=== PATIENT | female | born 1930 | race Caucasian/White ===

== ENCOUNTER 2019-04-04 05:14 | Inpatient (IN) ==
[2019-04-04 06:30] LABS: Basophils # (auto) 0.02 K/uL (0-0.2); Basophils % (auto) 0.2 %; Eosinophils # (auto) 0.18 K/uL (0-0.5); Eosinophils % (auto) 1.6 %; Hemoglobin 11.4 g/dL (12.0-16.0); Immature Granulocytes # (auto) 0.02 K/uL (0.00-0.02); Immature Granulocytes % (auto) 0.2 %; Lymphocytes # (auto) 1.12 K/uL (1.2-3.4); Lymphocytes % (auto) 9.7 %; Mean Corpuscular Hgb Conc 33.5 g/dL (32-36); Mean Corpuscular Volume 82.1 fL (80-100); Mean Platelet Volume 8.7 fL (7.4-10.4); Monocytes # (auto) 0.82 K/uL (0.11-0.59); Monocytes % (auto) 7.1 %; Neutrophils # (auto) 9.33 K/uL (1.4-6.5); Neutrophils % (auto) 81.2 %; Platelet Count 254 K/uL (130-400); RDW Coefficient of Variation 14.8 % (11.5-14.5); RDW Standard Deviation 44.5 fL (36.4-46.3); Red Blood Count 4.14 M/uL (4.2-5.4); White Blood Count 11.49 K/uL (4.8-10.8)
[2019-04-04] MEDS ORDERED: cefTRIAXone SODIUM 1,000 MG/50 ML BAG IV STA (06:33)
[2019-04-04 06:47] LABS: Albumin Level 2.3 gm/dl (3.4-5.0); BUN Creatinine Ratio 21.8 (10-20); Calcium 10.1 mg/dl (8.5-10.1); Creatinine Clr Calc Pharmacy 41.4 ml/min; Est GFR (African American) 66.2; Est GFR (Non-African American) 57.1; Potassium 3.8 mmol/L (3.5-5.1)
[2019-04-04 06:50] LABS: Albumin Globulin Ratio 0.5 (0.9-2); Bilirubin,Total 0.4 mg/dl (0.2-1); Globulin 4.8 gm/dl (2.5-4.0); Total Protein 7.1 gm/dl (6.4-8.2)
--- NOTE | 2019-04-04 06:53 | XRay Report ---
XR chest 2V routine CLINICAL HISTORY: 88 years-old Female presenting with Dyspnea. TECHNIQUE: PA and lateral views of the chest were obtained. COMPARISON: None. FINDINGS: Atherosclerosis of the aortic arch. Cardiac silhouette enlarged. Masslike 7.2 cm opacity in the right lower lobe. This may contain internal cavitary change. Normal lung volume. Diffuse coarsening of pako g markings with basilar predominant reticular opacities. Pleural thickening or trace pleural effusion suggested on the right. No pneumothorax. Degenerative changes of the thoracic spine. Osteopenia is l ikely present. Cholecystectomy clips noted. IMPRESSION: 1. Masslike opacity in the right lower lobe concerning for an underlying lesion. Contrast-enhanced c hest CT should be obtained. 2. Underlying chronic lung disease. A superimposed basilar predominant infiltrate is not excluded. The report will be called/faxed according to standard departmental protocol. Electronically signed by: Elliot Carpio M.D. 04/04/2019 6:52 AM
[2019-04-04] MEDS ORDERED: IOVERSOL 100ml IV PRN (07:04)
--- NOTE | 2019-04-04 07:22 | CT Scan Report ---
CHEST CT WITH CONTRAST CT DOSE: 170.26 mGy.cm HISTORY: Abnormal chest x-ray. eval right sided pneumonia TECHNIQUE: Multiaxial CT images of the chest were performed following the intravenous administration of contrast. A dose lowering technique was utilized adhering to the principles of ALARA. COMPARISON: Chest 04/04/2019. FINDINGS: Respiratory motion artifact. No pneumothorax. Mild emphysema. Small right pleural effusion. Right paratracheal, subcarinal, and right hilar lymphadenopathy. Dominant subcarinal lymph node valente ures 4.0 x 2.3 cm. Dominant right paratracheal lymph node is partially necrotic and measures 2.6 x 1. 9 cm. Dominant right hilar lymph node measures 2.1 cm. The hilar and subcarinal lymphadenopathy resul ts in slight mass effect along the bronchus intermedius. No evidence for an aortic dissection. The ma in pulmonary arteries are patent. No significant left hilar lymphadenopathy. Within the right lower l obe posteriorly there is a 6 cm round opacity demonstrating central hypodensity. This demonstrates a thick wall and therefore favors a necrotic mass. A 3 cm partially visualized hypodense lesion within the upper pole the right kidney. This is incompletely visualized but favors a cyst. The visualized li eliazar, spleen, and adrenal glands are unremarkable. Moderate hiatus hernia. There is diffuse coarse int erstitial thickening with mild honeycombing along the periphery of the lungs. This is consistent with pulmonary fibrosis. Interstitial densities at the lung bases also likely due to the fibrotic change. No suspicious lytic are blastic osseous lesions. IMPRESSION: 1. A 6 cm necrotic lesion within the right lower lobe. This is highly concerning for a primary bronch ogenic malignancy. 2. Extensive mediastinal and right hilar lymphadenopathy concerning for metastatic disease. 3. Small right pleural effusion. 4. Diffuse coarse interstitial thickening suggestive of fibrotic change. Electronically signed by: Julián Stiles M.D. 04/04/2019 7:21 AM
[2019-04-04] MEDS ORDERED: SODIUM CHLORIDE 0.9% 500 ML IV SCH (07:45)
[2019-04-04 07:53] LABS: Appearance Urine Clear (Clear); Bacteria Urine Automated 1+ (Negative); Bilirubin Urine Negative (Negative); Blood Urine Trace (Negative); Color Urine Yellow; Epithelial Cell Urine Auto 20-30 /lpf (0-5); Glucose Urine UA Negative (Negative); Ketones Urine Negative (Negative); Leukocyte Esterase Urine 1+ (Negative); Nitrite Urine Positive (Negative); Protein Urine Negative (Negative); RBC Urine Automated 0-4 /hpf (0-4); Specific Gravity Urine 1.018 (1.000-1.030); Urobilinogen Urine Negative (Negative); pH Urine 6.5 (4.5-7.5)
[2019-04-04 08:42] LABS: C Reactive Protein 7.68 mg/dl (0-0.29)
[2019-04-04] MEDS ORDERED: NON-FORMULARY MEDICATION (Multivit-Min-Fa-Lycopen-Lutein [Centrum Silver] 1 TAB) PO SCH (09:23)
[2019-04-04 09:57] LABS: INR 1.1 (0.9-1.1); Prothrombin Time 11.4 Seconds (9.0-12.0)
[2019-04-04] MEDS: ASPIRIN 81 MG ECTAB PO SCH (10:15)
[2019-04-04] MEDS: CEROVITE ADV FORMULA TAB PO SCH ×2 (10:15→21:04)
[2019-04-04] MEDS: CHOLECALCIFEROL 1,000 UNITS TAB PO SCH (10:15)
[2019-04-04] MEDS: LEVOTHYROXINE SODIUM 75 MCG TABLET PO SCH (10:16)
[2019-04-04] MEDS: AZITHROMYCIN 500 MG in DEXTROSE 5% 250 ML IV SCH (10:19)
--- NOTE | 2019-04-04 10:25 | History & Physical Report ---
Date of Service April 04, 2019 Assessment & Plan (1) Hypoxia: (2) Right lower lobe lung mass: -Admit to [facility] -Patient presenting from home with reports of generalized weakness and poor appetite for the past few days -In the ED, found to be mildly hypoxic on room air at 89%, this improved with oxygen 2 L via nasal cannula -CXR was suggesting a right lower lobe lung mass; CT chest was obtained showing 6 cm right lower lobe necrotic mass with mediastinal and right hilar lymphadenopathy suggestive of metastatic disease -will place on his ceftriaxone and a azithromycin for empiric coverage of any possible underlying infection -Patient is a former smoker (quit ~40 years ago) -Likely will need biopsy for definitive diagnosis -Consults placed to pulmonary and thoracic medicine (3) Possible urinary tract infection: -UA suggest possible UTI -Received IV ceftriaxone in the ED, will continue with -Follow urine culture (4) Hypothyroidism: -Continue levothyroxine (5) DVT prophylaxis: -SQ heparin History of Present Illness Chief Complaint: Generalized weakness Primary Care Provider: Clair Ochoa DO 88-year-old female who presents to the ED with generalized weakness. Patient reports she has been feeling well for the past 3 days. Patient lives at home alone in [place]. She reports that in addition to generalized weakness, she is also been having some upper/mid back pain. This is resolved with use of Tylenol. She has had a very poor appetite and nausea. She denies abdominal pain, vomiting, diarrhea. She reports she felt feverish however did not take her temperature. Patient reports she otherwise been feeling well recently. Weight has been stable. She denies chest pain or shortness of breath. No cough or sputum production. No lightheadedness, dizziness, kimberly phoresis, syncopal events. She denies any urinary symptoms. In the ED, patient was mildly hypoxic on room air at 89%. This improved with oxygen 2 L via nasal cannula. UA is suggestive of UTI. Chest x-ray was suggestive of right lower lobe mass. Follow-up CT was obtained that showed a 6 cm right lower lobe necrotic mass. Patient was given IVF and IV ceftriaxone. Allergies Allergy/AdvReac Type Severity Reaction Status Date / Time No Known Allergies Allergy Unverified 04/04/19 06:11 Home Medications Home Medications Medication Instructions Recorded Confirmed Type aspirin 81 mg PO DAILY 04/04/19 04/04/19 History cholecalciferol (vitamin D3) 1,000 unit PO DAILY 04/04/19 04/04/19 History [Vitamin D3] levothyroxine 75 mcg PO DAILY 04/04/19 04/04/19 History foxwyhdm-wvg-ZA-lycopen-lutein 1 tab PO DAILY 04/04/19 04/04/19 History [Centrum Silver] vit C,B-Vu-trfun-lutein-zeaxan 1 tab PO BID 04/04/19 04/04/19 History [PreserVision AREDS-2] Past Med/Surg History Medical History History of hysterectomy (Chronic) Macular degeneration (Chronic) Osteoarthritis (Chronic) Dyslipidemia (Chronic) Hypothyroidism (Chronic) Surgical History Hx of cholecystectomy (Chronic) History of cataract surgery (Chronic) H/O oophorectomy (Chronic) Family History Mother Liver cancer Brother Stomach cancer Social History Preferred Language: Yoruba Communication Ability: Effective Director Motion Picture Required: No Beliefs That Will Affect Care: None Current Living Situation: Alone Other Information That Helps Us Care for You: No Feels Safe at Home: Yes Safety Concerns: Feels Safe At This Time Smoking Status: Former smoker Do You Dip or Chew Tobacco: No ; Second Hand Exposure: No ; Tobacco Cessation Education Requested by Patient: No Hx Alcohol Use: Yes Alcohol type: wine Alcohol Intake Frequency: Rarely Hx Substance Use: No Review of Systems Review of Systems: ROS per HPI, all other systems reviewed and negative Physical Exam Constitutional: WD/WN, vitals as above Eyes: PERRL, conjunctivae normal, anicteric sclerae ENMT: external ear and nose normal, oropharynx normal Respiratory: normal respiratory effort; no respiratory distress Mildly coarse breath sounds bilateral bases Cardiovascular: Rate/Rhythm: + irregularly irregular (Occasional PVCs noted) Vessels: normal peripheral pulses Extremities: no edema Gastrointestinal (Abdomen): normal bowel sounds, soft, nontender, no hepatosplenomegaly Musculoskeletal: no cyanosis or clubbing, extremities motor strength 5/5 Skin: no rashes, warm and dry Neurologic: PERRL, EOMI, accommodation nl, no face palsy, no dysarthria Psychiatric: A+Ox3, euthymic affect Results & Data Vital Signs (Past 12 Hours) Vital Signs Temp Pulse Pulse Resp BP BP Pulse Ox 04/04/19 08:57 90 24 162/86 H 96 04/04/19 07:41 96 H 24 162/71 H 96 04/04/19 06:42 93 04/04/19 06:34 89 L 04/04/19 06:29 88 18 122/74 91 04/04/19 06:28 91 04/04/19 05:25 37.1 C 98 H 18 153/90 H 91 Laboratory Results Short CBC 04/04/19 Range/Units 06:24 WBC 11.49 H (4.8-10.8) K/uL Hgb 11.4 L (12.0-16.0) g/dL Hct 34.0 L (37-47) % Plt Count 254 (130-400) K/uL BMP 04/04/19 06:24 Sodium 138 Potassium 3.8 Chloride 106 Carbon Dioxide 25 BUN 20 H Creatinine 0.91 Glucose 104 H Calcium 10.1 Liver Function 04/04/19 Range/Units 06:24 Total Bilirubin 0.4 (0.2-1) mg/dl AST 13 L (15-37) U/L ALT 15 (12-78) U/L Alkaline Phosphatase 86 (45-117) U/L Albumin 2.3 L (3.4-5.0) gm/dl Urine 04/04/19 Range/Units 07:45 Urine Color Yellow Urine Appearance Clear (Clear) Urine pH 6.5 (4.5-7.5) Ur Specific [place] 1.018 (1.000-1.030) Urine Protein Negative (Negative) Urine Glucose (UA) Negative (Negative) Diagnostic Findings CXR IMPRESSION: 1. Masslike opacity in the right lower lobe concerning for an underlying lesion. Contrast-enhanced chest CT should be obtained. 2. Underlying chronic lung disease. A superimposed basilar predominant infiltrate is not excluded. CHEST CT IMPRESSION: 1. A 6 cm necrotic lesion within the right lower lobe. This is highly concerning for a primary bronchogenic malignancy. 2. Extensive mediastinal and right hilar lymphadenopathy concerning for metastatic disease. 3. Small right pleural effusion. 4. Diffuse coarse interstitial thickening suggestive of fibrotic change. Code Status & VTE Plan Code Status Patient is a full code as per my discussion with her. VTE Prophylaxis Plan VTE Prophylaxis will be ordered: Yes Supervising Physician Co-Signing Physician Notes I have seen and examined the patient with nurse practitioner and agree with the assessment and plan as above and would like to comment that this is an 88 year old Female with complaints of a persistent nonproductive cough beginning [address] Chest findings that is highly concerning for lung cancer CT chest 1. A 6 cm necrotic lesion within the right lower lobe. This is highly concerning for a primary bronchogenic malignancy. 2. Extensive mediastinal and right hilar lymphadenopathy concerning for metastatic disease. 3. Small right pleural effusion. 4. Diffuse coarse interstitial thickening suggestive of fibrotic change. Patient has CT-guided fine-needle aspiration of the right lower lobe lung mass on 04/04/19 and sent to pathology CT surgery who had been consulted to help with making the pulmonary diagnosis also recommended Brain imaging to rule out brain cancer. Brain MRI with and without contrast: No acute intracranial findings.No evidence of intracranial metastasis No evidence of acute or subacute infarction will continue IV fluids given that patient received IV contrast for the brain MRI scan and recheck renal function on 04/05/19 have added azithromycin with ceftriaxone to give additional pulmonary coverage in case there is a concurrent pneumonia continue ceftriaxone empirically for urinary tract infection will keep inpatient for now and try to titrate down supplementary oxygen for hypoxia if possible Physical Exam General: no acute distress, ambulatory, verbal, cooperative Lungs: normal respiratory rate, on nasal cannula oxygen heart: regular rate and rhythm Neuro: no focal neurological deficits abdomen: soft, nontender, positive bowel sounds
[2019-04-04] MEDS: SODIUM CHLORIDE 0.9% 1000ML 1,000 ML IV SCH (10:43)
--- NOTE | 2019-04-04 14:13 | Emergency Department Note ---
Entered by Ernesto Groves acting as a scribe for History of Present Illness General Chief complaint: Illness Stated complaint: ILLNESS Time Seen by Provider: 04/04/19 05:18 Source: patient History of Present Illness Onset (ago): day(s) 3 Location: chest Pain Consistency: + other (persistent) Maximum Pain Intensity: 5 Quality: + other (nonproductive cough) Associated symptoms: + other (Positive for back pain, leg pain, and nausea. Negative for abdominal pain, CP, and fever.) The patient is an 88 year old female who presents to the emergency department w ith complaints of a persistent nonproductive cough beginning 3 days ago. The patient states that she began to feel ill 3 days ago. She notes that she developed a nonproductive cough, a burning pain in her back, and pain in the back of her legs at that time. She reports that she was nauseous en route to the emergency department, but she states that her nausea has resolved. She denies any abdominal pain, CP, and fever. Home Medications Home Medications Medication Instructions Recorded Confirmed Type aspirin 81 mg PO DAILY 04/04/19 04/04/19 History cholecalciferol (vitamin D3) 1,000 unit PO DAILY 04/04/19 04/04/19 History [Vitamin D3] levothyroxine 75 mcg PO DAILY 04/04/19 04/04/19 History wwflgbpc-jli-AO-lycopen-lutein 1 tab PO DAILY 04/04/19 04/04/19 History [Centrum Silver] vit C,G-Ry-tupax-lutein-zeaxan 1 tab PO BID 04/04/19 04/04/19 History [PreserVision AREDS-2] Allergies Allergy/AdvReac Type Severity Reaction Status Date / Time No Known Allergies Allergy Unverified 04/04/19 06:11 Past Med/Surg History Medical History History of hysterectomy (Chronic) Macular degeneration (Chronic) Osteoarthritis (Chronic) Dyslipidemia (Chronic) Hypothyroidism (Chronic) Surgical History Hx of cholecystectomy (Chronic) History of cataract surgery (Chronic) H/O oophorectomy (Chronic) Family History Mother Liver cancer Brother Stomach cancer Social History Preferred Language: [place] Communication Ability: Effective 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 and A total of 10 systems reviewed and were otherwise negative Physical Exam Vital Signs Vital Signs - 24 hr 04/04/19 05:25 04/04/19 06:28 04/04/19 06:29 Temperature 37.1 C Temperature Source Oral Sepsis Recent Fever Within 48 Hours No Sepsis New/Unexplained Change in Mental Status No Sepsis Action Taken by Nursing No Action Required Pulse Rate 98 H Pulse Rate [Finger] 88 Respiratory Rate 18 18 Blood Pressure 153/90 H Blood Pressure [Right Arm] 122/74 Blood Pressure Mean 111 Blood Pressure Mean [Right Arm] 90 Pulse Oximetry 91 91 91 Oxygen Delivery Method Room Air Room Air Room Air Oxygen Flow Rate 04/04/19 06:34 04/04/19 06:42 04/04/19 07:41 Temperature Temperature Source Sepsis Recent Fever Within 48 Hours Sepsis New/Unexplained Change in Mental Status Sepsis Action Taken by Nursing Pulse Rate Pulse Rate [Finger] 96 H Respiratory Rate 24 Blood Pressure Blood Pressure [Right Arm] 162/71 H Blood Pressure Mean Blood Pressure Mean [Right Arm] 101 Pulse Oximetry 89 L 93 96 Oxygen Delivery Method Room Air Nasal Cannula Nasal Cannula Oxygen Flow Rate 2 2 HEENT: Head - normocephalic and atraumatic Pupils are equal, round, and reactive to light. Extraocular eye muscles are intact, and sclera are anicteric. Nose - moist nasal mucosa without discharge. Mouth - moist buccal mucosa. Oropharynx is nonerythematous and there is no tonsillar exudate or edema noted. Neck: Supple; no thyromegaly or cervical lymphadenopathy Heart: Regular rate and rhythm. There is a normal S1 and S2 with no murmurs, clicks, or gallops appreciated. Lungs: Clear to auscultation bilaterally with no wheezes, rales, or rhonchi. Abdomen: Soft, completely nontender, nondistended, with good bowel sounds. There are no palpable pulsatile masses or hepatosplenomegaly. There is no guarding, rigidity, or rebound noted. Extremities: No evidence of cyanosis, clubbing, or edema. There are easily palpable peripheral pulses. Skin: warm and dry with good turgor and no rashes. Course 0529: The patient was evaluated in room A9. A complete history and physical examination were performed. Nursing notes and previous electronic medical records were reviewed. IV lock was established and labs were drawn as above. The patient was observed on the threat monitoring analyst and pulse oximeter. O2 saturations dropped into the 80s and she was placed on supplemental oxygen. She had a chest x-ray as described below 0638: Ceftriaxone Sodium 1000mg in 50 mls @ 100 mls/hr IV 0639: I reevaluated and updated the patient. She is feeling better. She is getting antibiotics and will soon go for CT. 0734: Upon reevaluation, the patient is stable. I discussed the findings and the treatment plan with the patient. She expresses agreement and understanding. I spoke with Dr. Shelley of the [facility]. She will be evaluated for further management. Consultations Consultation #1: I [facility] the [facility] He will evaluate the patient for further management. Time: 07:34 Administered Medications Aspirin (Ecotrin Ectab) 81 mg PO DAILY MACO Stop: 05/04/19 09:22 Last Admin: 04/04/19 10:15 Dose: 81 mg Documented by: [id number] Azithromycin 500 mg/ Dextrose 255 mls @ 125 mls/hr IV Q24H MACO Stop: 04/11/19 09:59 Last Infusion: 04/04/19 10:30 Dose: 0 mls/hr Documented by: [id number] Admin: 04/04/19 10:19 Dose: 125 mls/hr Documented by: [id number] Sodium Chloride (Nss 1000ml) 1,000 mls @ 80 mls/hr IV .[id number] MACO Stop: 05/04/19 10:29 Last Infusion: 04/04/19 13:05 Dose: 0 mls/hr Documented by: [id number] Admin: 04/04/19 10:43 Dose: 80 mls/hr Documented by: [id number] Levothyroxine Sodium (Synthroid) 75 mcg PO DAILYBB MACO Stop: 05/04/19 09:44 Last Admin: 04/04/19 10:16 Dose: 75 mcg Documented by: [id number] Multivitamins/Minerals (Multivitamin W/ Minerals Tab) 1 tab PO BID MACO Stop: 05/04/19 09:22 Last Admin: 04/04/19 10:15 Dose: 1 tab Documented by: [id number] Vitamin D (Vitamin D3) 1,000 units PO DAILY MACO Stop: 05/04/19 09:22 Last Admin: 04/04/19 10:15 Dose: 1,000 units Documented by: [id number] Discontinued Medications Ceftriaxone Sodium (Rocephin) 1,000 mg in 50 mls @ 100 mls/hr IV NOW STA Stop: 04/04/19 07:02 Last Infusion: 04/04/19 07:16 Dose: 0 mls/hr Documented by: [id number] Admin: 04/04/19 06:38 Dose: 100 mls/hr Documented by: [id number] Sodium Chloride (Nss) 500 mls @ 125 mls/hr IV .Q4H MACO Stop: 05/04/19 07:44 Last Admin: 04/04/19 07:41 Dose: 125 mls/hr Documented by: [id number] Ioversol (Optiray 320 100ml) 95 ml IV ONCE PRN PRN Reason: Interaction Checking Stop: 04/08/19 07:03 Last Admin: 04/04/19 07:05 Dose: 95 ml Documented by: [id number] Medical Decision Making Differential Diagnosis Differential diagnoses include: pneumonia, electrolyte abnormalities, dehydration, and bronchitis. Medical Records Attestation: I reviewed the patient's medical records. Home Medications Current Medication List: was personally reviewed by me Laboratory Data Attestation: I reviewed the patient's lab results. Result diagrams: 04/04/19 06:24 04/04/19 06:24 Lab Results 04/04/19 04/04/19 04/04/19 Range/Units 06:24 06:24 06:24 WBC 11.49 H (4.8-10.8) K/uL RBC 4.14 L (4.2-5.4) M/uL Hgb 11.4 L (12.0-16.0) g/dL Hct 34.0 L (37-47) % MCV 82.1 (80-100) fL MCH 27.5 (25-34) pg MCHC 33.5 (32-36) g/dL RDW Std Deviation 44.5 (36.4-46.3) fL RDW Coeff of Mickey 14.8 H (11.5-14.5) % Plt Count 254 (130-400) K/uL MPV 8.7 (7.4-10.4) fL Immature Gran % (Auto) 0.2 % Neut % (Auto) 81.2 % Lymph % (Auto) 9.7 % [place] % (Auto) 7.1 % Eos % (Auto) 1.6 % Baso % (Auto) 0.2 % Immature Gran # (Auto) 0.02 (0.00-0.02) K/uL Neut # (Auto) 9.33 H (1.4-6.5) K/uL Lymph # (Auto) 1.12 L (1.2-3.4) K/uL [place] # (Auto) 0.82 H (0.11-0.59) K/uL Eos # (Auto) 0.18 (0-0.5) K/uL Baso # (Auto) 0.02 (0-0.2) K/uL ESR > 90 H (0-21) mm/hr Sodium 138 (136-145) mmol/L Potassium 3.8 (3.5-5.1) mmol/L Chloride 106 (98-107) mmol/L Carbon Dioxide 25 (21-32) mmol/L Anion Gap 7.0 (3-11) BUN 20 H (7-18) mg/dl Creatinine 0.91 (0.6-1.2) mg/dl Est Cr Clr Drug Dosing 41.4 ml/min Est GFR ( Amer) 66.2 Est GFR (Non-Af Amer) 57.1 BUN/Creatinine Ratio 21.8 H (10-20) Glucose 104 H (70-99) mg/dl Lactate (0.4-2.0) mmol/L Calcium 10.1 (8.5-10.1) mg/dl Total Bilirubin 0.4 (0.2-1) mg/dl AST 13 L (15-37) U/L ALT 15 (12-78) U/L Alkaline Phosphatase 86 (45-117) U/L C-Reactive Protein (0-0.29) mg/dl Total Protein 7.1 (6.4-8.2) gm/dl Albumin 2.3 L (3.4-5.0) gm/dl Globulin 4.8 H (2.5-4.0) gm/dl Albumin/Globulin Ratio 0.5 L (0.9-2) Procalcitonin (0-0.5) ng/ml TSH (0.300-4.500) uIu/ml Urine Color Urine Appearance (Clear) Urine pH (4.5-7.5) Ur Specific [place] (1.000-1.030) Urine Protein (Negative) Urine Glucose (UA) (Negative) Urine Ketones (Negative) Urine Blood (Negative) Urine Nitrite (Negative) Urine Bilirubin (Negative) Urine Urobilinogen (Negative) Ur Leukocyte Esterase (Negative) Urine WBC (Auto) (0-5) /hpf Urine RBC (Auto) (0-4) /hpf U Hyaline Cast (Auto) (0-5) /lpf U Epithel Cells (Auto) (0-5) /lpf Urine Bacteria (Auto) (Negative) Blood Type Antibody Screen 04/04/19 04/04/19 04/04/19 Range/Units 06:24 07:45 08:22 WBC (4.8-10.8) K/uL RBC (4.2-5.4) M/uL Hgb (12.0-16.0) g/dL Hct (37-47) % MCV (80-100) fL MCH (25-34) pg MCHC (32-36) g/dL RDW Std Deviation (36.4-46.3) fL RDW Coeff of Mickey (11.5-14.5) % Plt Count (130-400) K/uL MPV (7.4-10.4) fL Immature Gran % (Auto) % Neut % (Auto) % Lymph % (Auto) % [place] % (Auto) % Eos % (Auto) % Baso % (Auto) % Immature Gran # (Auto) (0.00-0.02) K/uL Neut # (Auto) (1.4-6.5) K/uL Lymph # (Auto) (1.2-3.4) K/uL [place] # (Auto) (0.11-0.59) K/uL Eos # (Auto) (0-0.5) K/uL Baso # (Auto) (0-0.2) K/uL ESR (0-21) mm/hr Sodium (136-145) mmol/L Potassium (3.5-5.1) mmol/L Chloride (98-107) mmol/L Carbon Dioxide (21-32) mmol/L Anion Gap (3-11) BUN (7-18) mg/dl Creatinine (0.6-1.2) mg/dl Est Cr Clr Drug Dosing ml/min Est GFR ( Amer) Est GFR (Non-Af Amer) BUN/Creatinine Ratio (10-20) Glucose (70-99) mg/dl Lactate (0.4-2.0) mmol/L Calcium (8.5-10.1) mg/dl Total Bilirubin (0.2-1) mg/dl AST (15-37) U/L ALT (12-78) U/L Alkaline Phosphatase (45-117) U/L C-Reactive Protein 7.68 H (0-0.29) mg/dl Total Protein (6.4-8.2) gm/dl Albumin (3.4-5.0) gm/dl Globulin (2.5-4.0) gm/dl Albumin/Globulin Ratio (0.9-2) Procalcitonin 0.05 (0-0.5) ng/ml TSH 0.874 (0.300-4.500) uIu/ml Urine Color Yellow Urine Appearance Clear (Clear) Urine pH 6.5 (4.5-7.5) Ur Specific [place] 1.018 (1.000-1.030) Urine Protein Negative (Negative) Urine Glucose (UA) Negative (Negative) Urine Ketones Negative (Negative) Urine Blood Trace H (Negative) Urine Nitrite Positive A (Negative) Urine Bilirubin Negative (Negative) Urine Urobilinogen Negative (Negative) Ur Leukocyte Esterase 1+ H (Negative) Urine WBC (Auto) 10-30 H (0-5) /hpf Urine RBC (Auto) 0-4 (0-4) /hpf U Hyaline Cast (Auto) 1-5 (0-5) /lpf U Epithel Cells (Auto) 20-30 H (0-5) /lpf Urine Bacteria (Auto) 1+ H (Negative) Blood Type Antibody Screen 04/04/19 04/04/19 Range/Units 08:22 08:22 WBC (4.8-10.8) K/uL RBC (4.2-5.4) M/uL Hgb (12.0-16.0) g/dL Hct (37-47) % MCV (80-100) fL MCH (25-34) pg MCHC (32-36) g/dL RDW Std Deviation (36.4-46.3) fL RDW Coeff of Mickey (11.5-14.5) % Plt Count (130-400) K/uL MPV (7.4-10.4) fL Immature Gran % (Auto) % Neut % (Auto) % Lymph % (Auto) % [place] % (Auto) % Eos % (Auto) % Baso % (Auto) % Immature Gran # (Auto) (0.00-0.02) K/uL Neut # (Auto) (1.4-6.5) K/uL Lymph # (Auto) (1.2-3.4) K/uL [place] # (Auto) (0.11-0.59) K/uL Eos # (Auto) (0-0.5) K/uL Baso # (Auto) (0-0.2) K/uL ESR (0-21) mm/hr Sodium (136-145) mmol/L Potassium (3.5-5.1) mmol/L Chloride (98-107) mmol/L Carbon Dioxide (21-32) mmol/L Anion Gap (3-11) BUN (7-18) mg/dl Creatinine (0.6-1.2) mg/dl Est Cr Clr Drug Dosing ml/min Est GFR ( Amer) Est GFR (Non-Af Amer) BUN/Creatinine Ratio (10-20) Glucose (70-99) mg/dl Lactate 1.0 (0.4-2.0) mmol/L Calcium (8.5-10.1) mg/dl Total Bilirubin (0.2-1) mg/dl AST (15-37) U/L ALT (12-78) U/L Alkaline Phosphatase (45-117) U/L C-Reactive Protein (0-0.29) mg/dl Total Protein (6.4-8.2) gm/dl Albumin (3.4-5.0) gm/dl Globulin (2.5-4.0) gm/dl Albumin/Globulin Ratio (0.9-2) Procalcitonin (0-0.5) ng/ml TSH (0.300-4.500) uIu/ml Urine Color Urine Appearance (Clear) Urine pH (4.5-7.5) Ur Specific [place] (1.000-1.030) Urine Protein (Negative) Urine Glucose (UA) (Negative) Urine Ketones (Negative) Urine Blood (Negative) Urine Nitrite (Negative) Urine Bilirubin (Negative) Urine Urobilinogen (Negative) Ur Leukocyte Esterase (Negative) Urine WBC (Auto) (0-5) /hpf Urine RBC (Auto) (0-4) /hpf U Hyaline Cast (Auto) (0-5) /lpf U Epithel Cells (Auto) (0-5) /lpf Urine Bacteria (Auto) (Negative) Blood Type O Negative Antibody Screen NEGATIVE Imaging Data Attestation: I personally reviewed and interpreted this imaging study as follows: My Impression: CHEST X-RAY: Pneumonia in right lower lung. Radiologist's Impression: Radiology results as stated below per my review and the radiologist's interpretation: CHEST CT WITH CONTRAST FINDINGS: Respiratory motion artifact. No pneumothorax. Mild emphysema. Small right pleural effusion. Right paratracheal, subcarinal, and right hilar lymphadenopathy. Dominant subcarinal lymph node measures 4.0 x 2.3 cm. Dominant right paratracheal lymph node is partially necrotic and measures 2.6 x 1.9 cm. Dominant right hilar lymph node measures 2.1 cm. The hilar and subcarinal ly mphadenopathy results in slight mass effect along the bronchus intermedius. No evidence for an aortic dissection. The main pulmonary arteries are patent. No significant left hilar lymphadenopathy. Within the right lower lobe posteriorly there is a 6 cm round opacity demonstrating central hypodensity. This demonstrates a thick wall and therefore favors a necrotic mass. A 3 cm partially visualized hypodense lesion within the upper pole the right kidney. This is incompletely visualized but favors a cyst. The visualized liver, spleen, and adrenal glands are unremarkable. Moderate hiatus hernia. There is diffuse coarse interstitial thickening with mild honeycombing along the periphery of the lungs. This is consistent with pulmonary fibrosis. Interstitial densities at the lung bases also likely due to the fibrotic change. No suspicious lytic are blastic osseous lesions. IMPRESSION: 1. A 6 cm necrotic lesion within the right lower lobe. This is highly concerning for a primary bronchogenic malignancy. 2. Extensive mediastinal and right hilar lymphadenopathy concerning for metastatic disease. 3. Small right pleural effusion. 4. Diffuse coarse interstitial thickening suggestive of fibrotic change. Electronically signed by: Julián Stiles M.D. 04/04/2019 7:21 AM ECG Data Attestation: I personally reviewed and interpreted this ECG as follows: Indication: back/shoulder pain Rate (beats per minute): 93 Rhythm: normal sinus Findings: no PAC, no PVC, no ST depression and no ST elevation Blood Pressure Blood Pressure Findings: Normal blood pressure Blood Pressure Disposition: did not require urgent referral MDM Narrative The patient is an 88 year old female who presents to the emergency department with complaints of a persistent nonproductive cough beginning 3 days ago. The patient has findings in the right lower lobe of her lung concerning for a mass versus pneumonia. She was treated with IV antibiotics and went for CT scan of the chest which unfortunately showed a necrotic mass thought to be consistent with bronchogenic carcinoma. The patient does have a history of tobacco abuse. She states that she smoked from the age of 16 to the age of 47. The patient did have episodes of hypoxia while here in the emergency department was placed on supplemental oxygen. I discussed the case with the hospitalist and they will evaluate for further management. Impression & Plan Mass of right lung, Hypoxia Critical Care Time Critical Care Time: Yes Total Critical Care Time: 45 I have personally spent 45 minutes of critical care time in the direct manage ment of this patient. This includes bedside care, interpretation of diagnostic studies, and testing, discussion with consultants, patient, and family members, and other required patient management activities. This 45 minutes is in excess of all separately billable procedures. Discharge Plan Visit Data *Final* Discharge Date/Time: 04/04/19 08:57 Chief Complaint: Illness Stated Complaint: ILLNESS ED Provider: Kylee Cyr Discharge Problem: Mass of right lung, Hypoxia Patient Disposition: Admitted As Inpatient Discharge Instructions Interventions: ED Discharge Assessment Last Done: 04/04/19 08:57 The scribe's documentation has been prepared under my direction and personally reviewed by me in its entirety. I confirm that the note above accurately reflects all work, treatment, procedures, and medical decision making performed by me.
--- NOTE | 2019-04-04 14:19 | CT Scan Report ---
CT guided FNA 1st lesion CLINICAL HISTORY: 88 years-old Female presenting with FNA. TECHNIQUE: Multidetector CT-guided fine-needle aspiration of the chest was performed without the use of intravenous contrast. IV contrast: None. CT fluoroscopy was utilized. One or more dose lowering te chniques were used consistent with the principles of ALARA (as low as reasonably achievable), includi ng automatic exposure control, mA or kV adjustment to individual patient size, and/or use of iterativ e reconstruction. COMPARISON: CT chest performed earlier the same day. CT DOSE (mGy.cm): The estimated cumulative dose is 675.38 mGycm. FINDINGS: Insurance Adjustor topogram: Unremarkable. The risks, benefits, and alternatives of the procedure were discussed with the patient. Written [facility] consent was obtained. A timeout was performed to confirm patient identity. The patient was placed right posterior oblique on the CT table, and the region of interest was scanne d for initial localization. The superficial margin of the right lower lobe mass was located 3.3 cm fr om the skin surface, and a right posterior oblique approach was chosen to target the mass. The right posterior chest wall was prepped and draped in the usual sterile fashion. 1% lidocaine was administered to the skin and deeper soft tissue. Using 22-gauge Seldinger needles and utilizing CT fluoroscopy, 2 passes were performed. Specimens wer e reviewed at the time of biopsy by the pathologist. These were deemed adequate for diagnosis. A postprocedure scan demonstrated trace foci of pneumothorax within the small right pleural effusion overlying the 5.7 cm right lower lobe mass. Background emphysema evident. The patient tolerated the procedure well without immediate complication. IMPRESSION: CT-guided fine-needle aspiration of the right lower lobe lung mass. Electronically signed by: Elliot Carpio M.D. 04/04/2019 2:18 PM
--- NOTE | 2019-04-04 14:50 | Consultation Report ---
DATE OF CONSULTATION: 04/04/2019 REASON FOR CONSULTATION: Right lower lobe mass and mediastinal adenopathy. HISTORY OF PRESENT ILLNESS: The patient is a remarkably healthy 88-year-old female who presented with confusion and hypoxia, was found to have a large mass in her right lower lobe with marked mediastinal adenopathy. She has also been confused, but has a urinary tract infection and has done this in the past. I had a long talk with the patient and 2 of her daughters. The patient has 5 children. The patient has a large right lower lobe mass, which is abutting her chest wall. She also has marked mediastinal adenopathy and a hiatal hernia. Different ways to approach this; however, I discussed this case with Dr. Julián Stiles from Radiology and they will perform a biopsy of this mass. PAST MEDICAL HISTORY: 1. Macular degeneration. 2. Dyslipidemia. 3. Hypothyroidism. 4. Osteoarthritis. 5. Urinary tract infection. 6. 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 PAST SURGICAL HISTORY: 1. 6, para 5, abortus 1. 2. Status post oophorectomy. 3. Cataract surgery. 4. Hysterectomy. 5. Cholecystectomy. MEDICATIONS: 1. Aspirin. 2. Synthroid. ALLERGIES: No known drug allergies. SOCIAL HISTORY: The patient is originally from [place]. She still lives in [place]. She had a history of cigarette smoking, but quit 40 years ago. She has a very supportive family. FAMILY MEDICAL HISTORY: Interestingly enough, her mother from apparent liver cancer and she had a brother who from gastric cancer. She had 1 child who was stillborn. REVIEW OF SYSTEMS: The patient states her weight has been relatively stable. She did feel feverish. She has signs and symptoms consistent with urinary tract infection. She is a bit hypoxic. She had generalized weakness and is having some back pain. She is independent of activities of daily living. She had no wound breakdown. She denies any visual or auditory symptoms. PHYSICAL EXAMINATION: GENERAL: This is a 5 feet 2 inch, 154-pound female who is awake, alert and oriented. HEENT: Extraocular movements are intact. She is hard of hearing. She has denture plates. NECK: Supple. She has no supraclavicular or cervical lymphadenopathy. LUNGS: Upon auscultation of her lungs, she actually sounds pretty good. She has a few rhonchi, a little worse on the right than left, but has no real decrease in breath sounds. HEART: She has a regular rate and rhythm with some occasional PACs or PVCs noted. ABDOMEN: Nice and soft. She has good bowel sounds and no evidence of hepatosplenomegaly. SKIN: She has no wound breakdown. EXTREMITIES: She has some mild hemosiderin deposition in both lower extremities. Has peripheral pulses, which are easily palpable. She has no joint effusions. NEUROLOGIC: Intact except for hearing. She apparently is better since she got to the hospital from a confusion standpoint. 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 I discussed this case with the family in detail. I also discussed this case with Dr. Rob and Dr. Stiles. We will see about getting this done. They will set up a needle biopsy of this mass. In the meantime, she also needs an MRI of her brain. I have discussed this in detail with the patient's family and they understand.
[2019-04-04] MEDS ORDERED: GADOBUTROL 65ML VIAL IV PRN (15:09)
--- NOTE | 2019-04-04 15:20 | CT Scan Report ---
CT guided FNA 1st lesion CLINICAL HISTORY: 88 years-old Female presenting with FNA. TECHNIQUE: Multidetector CT-guided fine-needle aspiration of the chest was performed without the use of intravenous contrast. IV contrast: None. CT fluoroscopy was utilized. One or more dose lowering te chniques were used consistent with the principles of ALARA (as low as reasonably achievable), includi ng automatic exposure control, mA or kV adjustment to individual patient size, and/or use of iterativ e reconstruction. COMPARISON: CT chest performed earlier the same day. CT DOSE (mGy.cm): The estimated cumulative dose is 675.38 mGycm. FINDINGS: Reconditioner topogram: Unremarkable. The risks, benefits, and alternatives of the procedure were discussed with the patient. Written [facility] consent was obtained. A timeout was performed to confirm patient identity. The patient was placed right posterior oblique on the CT table, and the region of interest was scanne d for initial localization. The superficial margin of the right lower lobe mass was located 3.3 cm fr om the skin surface, and a right posterior oblique approach was chosen to target the mass. The right posterior chest wall was prepped and draped in the usual sterile fashion. 1% lidocaine was administered to the skin and deeper soft tissue. Using 22-gauge Seldinger needles and utilizing CT fluoroscopy, 2 passes were performed. Specimens wer e reviewed at the time of biopsy by the pathologist. These were deemed adequate for diagnosis. A postprocedure scan demonstrated trace foci of pneumothorax within the small right pleural effusion overlying the 5.7 cm right lower lobe mass. Background emphysema evident. The patient tolerated the procedure well without immediate complication. IMPRESSION: CT-guided fine-needle aspiration of the right lower lobe lung mass. Electronically signed by: Elliot Carpio M.D. 04/04/2019 2:18 PM
--- NOTE | 2019-04-04 15:21 | Magnetic Resonance Report ---
MRI OF THE BRAIN WITHOUT AND WITH IV CONTRAST CLINICAL HISTORY: Lung carcinoma, weakness, possible intracranial metastasis. COMPARISON STUDY: No previous studies for comparison. TECHNIQUE: MRI of the brain was performed from the vertex to the skull base utilizing various T1 and T2 weighted sequences. Following the IV administration of 7 mL of Gadavist contrast, additional enhan missy images were obtained. FINDINGS: Sagittal T1, axial diffusion, proton density and T2 weighted axial, coronal FLAIR, and pre and post a xial T1-weighted images were acquired. These were supplemented with post gadolinium coronal T1 weight ed images. No intra or extra-axial mass lesions are visualized. Axial diffusion-weighted images reveal no evidence of acute or subacute infarction. There is mild ventricular prominence, finding which is felt to be secondary to volume loss Proton density T2-weighted and FLAIR images reveal scattered foci of increased T2 signal within the w dann matter, likely on a small vessel basis. There are no abnormal flow voids. There is no evidence of pathologic enhancement. There are minimal foci of increased T2 signal within the left mastoid, likely on an inflammatory basi s The examination is mildly compromised due to motion artifact. IMPRESSION: 1. No acute intracranial findings 2. No evidence of intracranial metastasis 3. No evidence of acute or subacute infarction Electronically signed by: Alan Kc M.D. 04/04/2019 3:20 PM
--- NOTE | 2019-04-04 15:44 | XRay Report ---
XR chest 1V portable HISTORY: post needle biopsy radiology COMPARISON: Chest 04/04/2019. FINDINGS: No pneumothorax. No pleural effusions. The heart remains enlarged. Diffuse coarse interstit ial thickening persists. The a 6.4 cm right lower lobe masslike opacity is again noted. IMPRESSION: 1. No pneumothorax. 2. Redemonstration of the 6.4 cm right lower lobe masslike opacity. Electronically signed by: Julián Stiles M.D. 04/04/2019 3:43 PM
[2019-04-04] MEDS: ACETAMINOPHEN 325 MG TAB PO PRN ×2 (16:47→21:04)
[2019-04-04] MEDS: HEPARIN SOD 5,000 UNIT/0.5 ML VIAL SQ SCH ×3 (16:51→21:07)
--- NOTE | 2019-04-04 17:34 | Pulmonary Consultation ---
Date of Consultation April 04, 2019 Assessment & Plan (1) Right lower lobe lung mass: Would await the results of the lung biopsy. Malignancy would be extremely suspicious. 2 of her daughters were present during this evaluation and they understand what the most likely diagnosis is. It is likely at least a stage III based upon the adenopathy. The results of the biopsy would then determine what type of treatments could be considered. Those decisions likely would need to be made by an oncologist. I suggested to her daughters that they will need to consider what level of heroics would be desired. Apparently the patient does not have a living will at present. (2) Mediastinal adenopathy: (3) Interstitial lung disease: She appears to have interstitial lung disease on her CAT scan. She should be assessed for her oxygen needs if any at the time of discharge. History of Present Illness Attending Physician: Chau Rob MD History of Present Illness The patient is an 88-year-old female who is being seen because of a lung mass. She presented to the emergency room with complaints of generalized weakness. She also had had increased confusion in the past week or so. The patient also had complained of some back pain. 2 of her daughters were present with her during this evaluation. They had noticed that she just was not quite as good as usual for the past week or 2. The patient reportedly has not had shortness of breath. She denies having a cough. There is been no sputum or hemoptysis. Her daughters have noticed a decrease in her energy level. Her appetite has been down a bit. The patient has balance problems. She lives alone in an apartment. 1 of her daughters lives very close. She came in with the above-mentioned symptoms. A chest x-ray was done suggesting a right lower lobe mass. A CT of the chest was then done showing a 6 cm necrotic lesion in the right lower lobe suggestive for primary bronchogenic carcinoma. There was extensive mediastinal and right hilar lymphadenopathy as well. The largest right paratracheal lymph node was 2.6 cm. Subcarinal nodes measured up to 4 cm. She also had some interstitial thickening and mild honeycomb pattern along the periphery of the lungs suggesting some degree of pulmonary fibrosis. The patient smoked from age 16 until age 48. Her daughters did not know how many cigarettes per day she smoked. The patient's also smoked so she had some secondhand smoke as well. In the emergency room the patient was found to be mildly hypoxic with a room air saturation of 89%. This afternoon the patient underwent a needle biopsy done by radiology. She is having a moderate amount of pain and discomfort at the site of the needle aspi rate. Allergies Allergy/AdvReac Type Severity Reaction Status Date / Time No Known Allergies Allergy Unverified 04/04/19 06:11 Home Medications Home Medications Medication Instructions Recorded Confirmed Type aspirin 81 mg PO DAILY 04/04/19 04/04/19 History cholecalciferol (vitamin D3) 1,000 unit PO DAILY 04/04/19 04/04/19 History [Vitamin D3] levothyroxine 75 mcg PO DAILY 04/04/19 04/04/19 History oafpqwug-kvl-YH-lycopen-lutein 1 tab PO DAILY 04/04/19 04/04/19 History [Centrum Silver] vit C,N-Rx-avbgi-lutein-zeaxan 1 tab PO BID 04/04/19 04/04/19 History [PreserVision AREDS-2] Patient History Medical History History of hysterectomy (Chronic) Macular degeneration (Chronic) Osteoarthritis (Chronic) Dyslipidemia (Chronic) Hypothyroidism (Chronic) Surgical History Hx of cholecystectomy (Chronic) History of cataract surgery (Chronic) H/O oophorectomy (Chronic) Family History Mother Liver cancer Brother Stomach cancer Social History Preferred Language: Macedonian Communication Ability: Effective Doll Repairer Required: No Beliefs That Will Affect Care: None Current Living Situation: Alone Other Information That Helps Us Care for You: No Feels Safe at Home: Yes Safety Concerns: Feels Safe At This Time Smoking Status: Former smoker Do You Dip or Chew Tobacco: No ; Second Hand Exposure: No ; Tobacco Cessation Education Requested by Patient: No Hx Alcohol Use: Yes Alcohol type: wine Alcohol Intake Frequency: Rarely Hx Substance Use: No Review of Systems Review of Systems: This was difficult to obtain for a number of reasons. The patient is hard of hearing. Also she is moderately uncomfortable after having had a needle biopsy earlier this afternoon. Essentially the review of systems is as noted in the history of present illness. Physical Exam Physical Exam: The patient is a pleasant 88-year-old female who was cooperative. She was awake I could not determine with certainty if she was oriented but I no reason to think she was not. Eye exam suggest she has had prior cataract surgeries bilaterally. Pupils react. Nares clear. Mouth exam unremarkable. Palpation of the neck reveals no lymph nodes or masses. Cardiac rate 89/min. Rhythm was regular. Blood pressure 143/95. This is probably not elevated just because of pain as she has had several elevations of blood pressure. The patient has a dorsal kyphosis. The respiratory rate is 18 breaths/min and not labored. Temperature was 36.8. She was complaining of chills. Auscultation revealed rales posteriorly bilaterally. This would correlate with some degree of interstitial lung disease. The breath sounds at the right base were very diminished. Saturation 99% on 2 L nasal cannula. Abdomen was soft. I could not get the patient to turn's on her back as she is having pain on the right side from the biopsy. She is trying to stay towards her left side. Bowel sounds were present. There was no tenderness to palpation. Extremities showed no cyanosis clubbing or edema. Results & Data Vital Signs (Past 12 Hours) Vital Signs Temp Pulse Pulse Resp BP BP Pulse Ox 04/04/19 16:13 36.8 C 89 18 143/95 H 99 04/04/19 09:20 37.1 C 90 18 162/86 H 96 04/04/19 08:57 90 24 162/86 H 96 04/04/19 07:41 96 H 24 162/71 H 96 04/04/19 06:42 93 04/04/19 06:34 89 L 04/04/19 06:29 88 18 122/74 91 04/04/19 06:28 91 04/04/19 05:25 37.1 C 98 H 18 153/90 H 91 Laboratory Results White count is 11.49. Hemoglobin decreased slightly to 11.4. Platelets 254,000. Sodium is 138 potassium 3.8 chloride 106 bicarb 25. BUN 20 with a creatinine 0.91. Glucose 104. Liver functions were unremarkable. C-reactive protein elevated at 7.68. Albumin decreased to 2.3. Urinalysis shows 10-30 WBCs with +1 bacteria. Urine and blood cultures are pending. Diagnostic Findings Brain MRI showed no acute intracranial findings with no evidence of mets. PG Care Time/CCT Total # of Minutes Spent Total Time Spent with Patient: Total time spent is greater than 50% in coordination of care (as documented) at patient's floor/unit and/or counseling patient:
[2019-04-05] MEDS: SODIUM CHLORIDE 0.9% 1000ML 1,000 ML IV SCH ×2 (01:46→12:57)
[2019-04-05] MEDS ORDERED: cefTRIAXone SODIUM 1,000 MG in DEXTROSE 5% 50 ML IV SCH (06:00)
[2019-04-05] MEDS: LEVOTHYROXINE SODIUM 75 MCG TABLET PO SCH (06:02)
[2019-04-05] MEDS: HEPARIN SOD 5,000 UNIT/0.5 ML VIAL SQ SCH (06:03)
[2019-04-05 06:17] LABS: Hematocrit (blood only) 34.9 % (37-47); Hemoglobin 11.8 g/dL (12.0-16.0); Mean Corpuscular Hgb Conc 33.8 g/dL (32-36); Mean Corpuscular Volume 83.9 fL (80-100); Mean Platelet Volume 9.5 fL (7.4-10.4); Platelet Count 270 K/uL (130-400); RDW Coefficient of Variation 14.9 % (11.5-14.5); RDW Standard Deviation 45.7 fL (36.4-46.3); Red Blood Count 4.16 M/uL (4.2-5.4); White Blood Count 11.38 K/uL (4.8-10.8)
[2019-04-05 06:45] LABS: BUN Creatinine Ratio 17.1 (10-20); Calcium 10.2 mg/dl (8.5-10.1); Creatinine Clr Calc Pharmacy 40.5 ml/min; Est GFR (African American) 64.5; Est GFR (Non-African American) 55.6; Potassium 3.7 mmol/L (3.5-5.1)
--- NOTE | 2019-04-05 08:28 | Pulmonology Progress Note ---
Date of Service April 05, 2019 Assessment & Plan (1) Right lower lobe lung mass: Would await the results of the lung biopsy. Malignancy would be extremely suspicious. It is likely at least a stage III based upon the adenopathy. The results of the biopsy would then determine what type of treatments could be considered. Those decisions likely would need to be made by an oncologist. I suggested to her daughters yesterday that they will need to consider what level of heroics would be desired. Apparently the patient does not have a living will at present. (2) Mediastinal adenopathy: (3) Interstitial lung disease: She appears to have interstitial lung disease on her CAT scan. She should be assessed for her oxygen needs if any at the time of discharge. Pulmonary will sign off for now. We will see again if requested. Subjective The patient is still having some pain on the right chest at the site of the needle biopsy. She denies any shortness of breath. Cough is minimal and non productive. She has had no hemoptysis. She states she is drinking a lot of water. Denies nausea or vomiting. Physical Exam Physical Exam: The patient is an 88 year old female who is cooperative. She is awake and fairly alert. She appears in no distress. Temperature is 37.1. She had no fevers post procedure. Pupils were reactive to light. Implants were noted bilaterally. Nares clear. Mouth exam unremarkable. No lymph nodes palpable. Cardiac rate 93/min. The rhythm was regular. Blood pressure 116/62. The respiratory rate at the time of my exam was 26/min but she did not appear labored. Dry rales are heard posteriorly bilaterally. This is unchanged. Oxygen saturation 93% on 2 L nasal cannula. She is still preferring to lie more towards her left side because of pain on the right side. Abdomen is soft and nontender. Bowel sounds were present. Extremities showed no cyanosis clubbing or edema. Results & Data Vital Signs (Past 12 Hours) Vital Signs Temp Pulse Resp BP Pulse Ox 04/05/19 06:53 37.1 C 93 H 18 93 04/04/19 23:15 36.4 C L 88 18 116/62 91 Laboratory Results White blood cell count today is 11.38. Hemoglobin 11.8. Platelets 270,000. Electrolytes show sodium 139 potassium 3.7 chloride 105 bicarb 29. BUN 16 with creatinine 0.93. Blood sugar 113. Calcium is slightly elevated at 10.2. Considering the fact that her albumin is low at 2.3, the corrected calcium level might actually be higher. Urine culture still pending. Lung biopsy still pending. Diagnostic Findings The patient did have a postprocedure chest x-ray yesterday which showed no evidence of pneumothorax. PG Care Time/CCT Total # of Minutes Spent Total Time Spent with Patient: Total time spent is greater than 50% in coordination of care (as documented) at patient's floor/unit and/or counseling patient:
[2019-04-05] MEDS: ASPIRIN 81 MG ECTAB PO SCH (08:40)
[2019-04-05] MEDS: CEROVITE ADV FORMULA TAB PO SCH (08:41)
[2019-04-05] MEDS: CHOLECALCIFEROL 1,000 UNITS TAB PO SCH (08:41)
[2019-04-05] MEDS: AZITHROMYCIN 500 MG in DEXTROSE 5% 250 ML IV SCH (09:54)
--- NOTE | 2019-04-05 13:52 | Hospitalist Progress Note ---
Date of Service April 05, 2019 Assessment & Plan (1) Hypoxia: (2) Right lower lobe lung mass: Right lower lobe lung mass Mediastinal adenopathy and Interstitial lung disease, status post CT-guided fine-needle aspiration of the right lower lobe lung mass on 04/04/19 and awaiting pathology results but based on imaging this is highly suspicious for stage 3 lung cancer, -88 year old Female with complaints of a persistent nonproductive cough beginning 3 days ago (In the ED, found to be mildly hypoxic on room air at 89%, this improved with oxygen 2 L via nasal cannula) with CT Chest findings that is highly concerning for stage 3 lung cancer -CT chest 1. A 6 cm necrotic lesion within the right lower lobe. This is highly concerning for a primary bronchogenic malignancy. 2. Extensive mediastinal and right hilar lymphadenopathy concerning for metastatic disease. 3. Small right pleural effusion. 4. Diffuse coarse interstitial thickening suggestive of fibrotic change. -Patient has CT-guided fine-needle aspiration of the right lower lobe lung mass on 04/04/19 and sent to pathology -CT surgery who had been consulted to help with making the pulmonary diagnosis also recommended Brain imaging to rule out brain cancer. Brain MRI with and without contrast: No acute intracranial findings.No evidence of intracranial metastasis. No evidence of acute or subacute infarction - CT-guided fine-needle aspiration of the right lower lobe lung mass on 04/04/19, pathology reports pending -patient received ceftriaxone and azithromycin for pulmonary and urinary bacterial coverage in the hospital on 04/04/19 to 04/05/19; discharge with prescription for amoxicillin/clavulanate twice a day for 7 days and prescription of azithromycin 250 mg for 7 days -patient and patient's family are instructed to follow up with primary care and oncology [facility] appointment line was called on 04/04/19 to help with scheduling patient to follow up with primary care doctor on [address] [place] [address] [place] [address] and also to follow up with [facility] at [address] [place] [address] , [place] [address] ( ) as the patient's biopsy results of CT-guided fine-needle aspiration of the right lower lobe lung mass on 04/04/19 needs to be followed up -In case there are any difficulties with obtaining Oncology follow up with [facility], patient/family may contact [facility] [address] [place] [address] for further outpatient evaluation -Patient may [facility] or alternatively can be referred to [facility] clinic at [address] [place] [address] Santoro who evaluated the patient while in the hospital, or his colleagues -patient's oxygen was titrated down at rest and assessed by respiratory therapist which assessed that patient required 2 liters/min of oxygen with ambulation and no oxygen needed at rest. discharge prescription for oxygen made and adult protective caseworker coordinating oxygen delivery (3) Possible urinary tract infection: -urinary tract infection suspected (based on initial urine analysis) -urine culture with no growth to date -patient received ceftriaxone and azithromycin for pulmonary and urinary bacterial coverage in the hospital on 04/04/19 to 04/05/19 discharge with prescription for amoxicillin/clavulanate twice a day for 7 days a nd prescription of azithromycin 250 mg for 7 days (4) Hypothyroidism: -Continue levothyroxine (5) DVT prophylaxis: -SQ heparin Discharge Diagnosis Hypoxia, Right lower lobe lung mass Mediastinal adenopathy and Interstitial lung disease, status post CT-guided fine-needle aspiration of the right lower lobe lung mass on 04/04/19 and awaiting pathology results but based on imaging this is highly suspicious for stage 3 lung cancer, urinary tract infection suspected Subjective patient's oxygen was titrated down at rest and assessed by respiratory therapist which assessed that patient required 2 liters/min of oxygen with ambulation and no oxygen needed at rest. patient had mild tachycardia during the 2 step test but this has resolved. no complaints of chest pain, no palpitations, no dizziness, no lightheadedness. Patient and her family members eager for her to go home. Discharge instructions discussed at length including in regards to the pending pathology results from lung biopsy Physical Exam Constitutional: comfortable Eyes: PERRL, conjunctivae normal, anicteric sclerae EOM intact bilaterally ENMT: external ear and nose normal, oropharynx normal Neck: normal visual inspection Respiratory: normal respiratory effort Cardiovascular: Rate/Rhythm: regular rhythm Gastrointestinal (Abdomen): normal bowel sounds, soft, nontender, no hepatosplenomegaly Musculoskeletal: Head/Neck/Chest: normocephalic and head atraumatic Neurologic: PERRL, EOMI, accommodation nl, no face palsy, no dysarthria CN's II-XI intact bilaterally Psychiatric: A+Ox3, euthymic affect Results & Data Vital Signs (Past 12 Hours) Vital Signs Temp Pulse Pulse Pulse Pulse Pulse Resp 04/05/19 13:45 37.3 C 93 H 18 04/05/19 11:53 117 H 103 H 107 H 106 H 04/05/19 06:53 37.1 C 93 H 18 Resp Resp Resp Resp BP Pulse Ox Pulse Ox 04/05/19 13:45 132/69 97 04/05/19 11:53 20 20 20 18 91 04/05/19 06:53 93 Pulse Ox Pulse Ox Pulse Ox 04/05/19 13:45 04/05/19 11:53 86 L 91 92 04/05/19 06:53
--- NOTE | 2019-04-05 14:05 | Discharge Summary ---
Date of Service April 05, 2019 Admission HPI Per Admitting Provider 88-year-old female who presents to the ED with generalized weakness. Patient reports she has been feeling well for the past 3 days. Patient lives at home alone in [place]. She reports that in addition to generalized weakness, she is also been having some upper/mid back pain. This is resolved with use of Tylenol. She has had a very poor appetite and nausea. She denies abdominal pain, vomiting, diarrhea. She reports she felt feverish however did not take her temperature. Patient reports she otherwise been feeling well recently. Weight has been stable. She denies chest pain or shortness of breath. No cough or sputum production. No lightheadedness, dizziness, diaphoresis, syncopal events. She denies any urinary symptoms. In the ED, patient was mildly hypoxic on room air at 89%. This improved with oxygen 2 L via nasal cannula. UA is suggestive of UTI. Chest x-ray was suggestive of right lower lobe mass. Follow-up CT was obtained that showed a 6 cm right lower lobe necrotic mass. Patient was given IVF and IV ceftriaxone. Admission Exam Per Admitting Provider Physical Exam Constitutional: WD/WN, vitals as above Eyes: PERRL, conjunctivae normal, anicteric sclerae ENMT: external ear and nose normal, oropharynx normal Respiratory: normal respiratory effort; no respiratory distress Mildly coarse breath sounds bilateral bases Cardiovascular: Rate/Rhythm: + irregularly irregular (Occasional PVCs noted) Vessels: normal peripheral pulses Extremities: no edema Gastrointestinal (Abdomen): normal bowel sounds, soft, nontender, no hepatosplenomegaly Musculoskeletal: no cyanosis or clubbing, extremities motor strength 5/5 Skin: no rashes, warm and dry Neurologic: PERRL, EOMI, accommodation nl, no face palsy, no dysarthria Psychiatric: A+Ox3, euthymic affect Principal Diagnosis Hypoxia, Right lower lobe lung mass Mediastinal adenopathy and Interstitial lung disease, status post CT-guided fine-needle aspiration of the right lower lobe lung mass on 04/04/19 and awaiting pathology results but based on imaging this is highly suspicious for stage 3 lung cancer, urinary tract infection suspected Discharge Exam Constitutional comfortable Eyes PERRL, conjunctivae normal, anicteric sclerae EOM intact bilaterally ENMT external ear and nose normal, oropharynx normal Neck normal visual inspection Respiratory normal respiratory effort Cardiovascular Rate/Rhythm: regular rhythm Gastrointestinal (Abdomen) normal bowel sounds, soft, nontender, no hepatosplenomegaly Musculoskeletal Head/Neck/Chest: normocephalic and head atraumatic Neurologic PERRL, EOMI, accommodation nl, no face palsy, no dysarthria CN's II-XI intact bilaterally Psychiatric A+Ox3, euthymic affect Discharge Data Allergies Allergy/AdvReac Type Severity Reaction Status Date / Time No Known Allergies Allergy Unverified 04/04/19 06:11 Consultations 04/04/19 07:44 Consult Pulmonology Routine 04/04/19 07:47 Consult Thoracic Surgery Routine 04/04/19 09:23 Consult Case Management - Discharge Planning Routine Ordered Studies 04/04/19 CT guided FNA 1st lesion Routine 04/04/19 06:37 CT chest w con Stat 04/04/19 12:21 CT limited or localized study Urgent 04/04/19 12:30 MR brain wo/w con Routine Hospital Course (1) Hypoxia: (2) Right lower lobe lung mass: Right lower lobe lung mass Mediastinal adenopathy and Interstitial lung disease, status post CT-guided fine-needle aspiration of the right lower lobe lung mass on 04/04/19 and awaiting pathology results but based on imaging this is highly suspicious for stage 3 lung cancer, -88 year old Female with complaints of a persistent nonproductive cough beginning 3 days ago (In the ED, found to be mildly hypoxic on room air at 89%, this improved with oxygen 2 L via nasal cannula) with CT Chest findings that is highly concerning for stage 3 lung cancer -CT chest 1. A 6 cm necrotic lesion within the right lower lobe. This is highly concerning for a primary bronchogenic malignancy. 2. Extensive mediastinal and right hilar lymphadenopathy concerning for metastatic disease. 3. Small right pleural effusion. 4. Diffuse coarse interstitial thickening suggestive of fibrotic change. -Patient has CT-guided fine-needle aspiration of the right lower lobe lung mass on 04/04/19 and sent to pathology -CT surgery who had been consulted to help with making the pulmonary diagnosis also recommended Brain imaging to rule out brain cancer. Brain MRI with and without contrast: No acute intracranial findings.No evidence of intracranial metastasis. No evidence of acute or subacute infarction - CT-guided fine-needle aspiration of the right lower lobe lung mass on 04/04/19, pathology reports pending -patient received ceftriaxone and azithromycin for pulmonary and urinary bacterial coverage in the hospital on 04/04/19 to 04/05/19; discharge with prescription for amoxicillin/clavulanate twice a day for 7 days and prescription of azithromycin 250 mg for 7 days -patient and patient's family are instructed to follow up with primary care and oncology [facility] clinic appointment line was called on 04/04/19 to help with scheduling patient to follow up with primary care doctor on [address] [place] [address] [place] [address] and also to follow up with [facility] Oncology clinic at [address] [facility] , [place] [address] ( ) as the patient's biopsy results of CT-guided fine-needle aspiration of the right lower lobe lung mass on 04/04/19 needs to be followed up -In case there are any difficulties with obtaining Oncology follow up with [facility], patient/family may contact [facility] Oncology [address] [place] [address] for further outpatient evaluation -Patient may follow up with a an/sqq 89(v)15 sonar system journeyman associated with [facility] group or alternatively can be referred to [facility] clinic at [address] [place] [address] with an/sqq 89(v)[address] Santoro who evaluated the patient while in the hospital, or his colleagues -patient's oxygen was titrated down at rest and assessed by respiratory therapist which assessed that patient required 2 liters/min of oxygen with ambulation and no oxygen needed at rest. discharge prescription for oxygen made and housing case manager coordinating oxygen delivery (3) Possible urinary tract infection: -urinary tract infection suspected (based on initial urine analysis) -urine culture with no growth to date -patient received ceftriaxone and azithromycin for pulmonary and urinary bacterial coverage in the hospital on 04/04/19 to 04/05/19 discharge with prescription for amoxicillin/clavulanate twice a day for 7 days and prescription of azithromycin 250 mg for 7 days (4) Hypothyroidism: -Continue levothyroxine (5) DVT prophylaxis: -SQ heparin Discharge Diagnosis Hypoxia, Right lower lobe lung mass Mediastinal adenopathy and Interstitial lung disease, status post CT-guided fine-needle aspiration of the right lower lobe lung mass on 04/04/19 and awaiting pathology results but based on imaging this is highly suspicious for stage 3 lung cancer, urinary tract infection suspected Total Time Total Time Spent Total Time Spent (In Minutes): 40 minutes Total Time Includes: Examination of the Patient, Discharge Planning, Medication Reconciliation and Communication With Other Providers Discharge Plan Discharge Items Patient Disposition: Home - Self-Care Reason For Visit: HYPOXIA, LUNG MASS,POSSIBLE UTI Discharge Diagnosis: Hypoxia, Right lower lobe lung mass Mediastinal adenopathy and Interstitial lung disease, status post CT-guided fine-needle aspiration of the right lower lobe lung mass on 04/04/19 and awaiting pathology results but based on imaging this is highly suspicious for stage 3 lung cancer, urinary tract infection suspected Condition: Good Discharge Goals: Diagnostic testing and Improve disease control Activity: Resume your previous activity Non-emergency contact: Primary Care Provider and Oncologist Call non-emergency contact if: you have any medication questions Follow-up/Referrals: Clair Ochoa DO [Primary Care Provider] - Diet: Regular Diet Texture: Dental soft (bite-sized) Addtl Provider Instructions: patient and patient's family are instructed to follow up with primary care and oncology [facility] clinic appointment line was called on 04/04/19 to help with scheduling patient to follow up with primary care doctor on [address] [place] [address] [place] [address] and also to follow up with [facility] Oncology clinic at [address] [place] [address] , [place] [address] ( ) as the patient's biopsy results of CT-guided fine-needle aspiration of the right lower lobe lung mass on 04/04/19 needs to be followed up In case there are any difficulties with obtaining Oncology follow up with [facility] group, patient/family may contact [facility] Oncology [address] [place] [address] for further outpatient evaluation Patient may follow up with a an/sqq 89(v)15 sonar system journeyman associated with [facility] group or alternatively can be referred to [facility] clinic at [address] [place] [address] with an/sqq 89(v)[address] Santoro who evaluated the patient while in the hospital, or his colleagues discharge from hospital with 2 liters/min of oxygen with ambulation and no oxygen needed at rest discharge with prescription for amoxicillin/clavulanate twice a day for 7 days and prescription of azithromycin 250 mg for 7 days (patient already received ceftriaxone and azithromycin for pulmonary and urinary bacterial coverage in the hospital on 04/04/19 to 04/05/19 Prescriptions: New azithromycin [Zithromax] 250 mg Tablet 250 mg PO QAM 7 Days Qty: 7 RF: 0 amoxicillin-pot clavulanate 875-125 mg Tablet 1 tab PO BIDM 7 Days Qty: 14 RF: 0 Continued levothyroxine 75 mcg tablet 75 mcg PO DAILY RF: 0 aspirin 81 mg Tablet,Delayed Release (Dr/Ec) 81 mg PO DAILY RF: 0 cholecalciferol (vitamin D3) [Vitamin D3] 1,000 unit Capsule 1,000 unit PO DAILY RF: 0 Centrum Silver 0.4-300-250 mg-mcg-mcg Tablet 1 tab PO DAILY RF: 0 PreserVision AREDS-2 877-177-50-1 il-enrx-nd-mg Capsule 1 tab PO BID RF: 0 Stand-Alone Forms: [facility] Discharge Orders: Discharge Order (Routine); Ordered 04/05/19 Ordered By: Chau Rob Admission Data Admit Date/Time: 04/04/19 08:26 Attending Provider: Chau Rob Admit Provider: Chau Rob Primary Care Provider: Clair Ochoa Other Providers: Jason Santoro ; Jason Parry Service: Medical Other Pending Studies at Discharge: Yes Studies:: CT-guided fine-needle aspiration of the right lower lobe lung mass on 04/04/19 and waiting pathology results
[2019-04-06] MEDS ORDERED: AMOXICILLIN/CLAVULANATE 875 MG TAB PO SCH (08:00)
[2019-04-06] MEDS ORDERED: AZITHROMYCIN 250 MG TAB PO SCH (09:00)
== END 2019-04-05 15:33 | disposition home health service (06) | DRG 181 ==
LOC: ED 05:14 → 3W 08:26